=== PATIENT | female | born 1965 | race Caucasian/White ===

== ENCOUNTER 2017-04-29 18:20 | Emergency (ER) | payer BC ==
[2017-04-29] MEDS ORDERED: ASPIRIN (CHEWABLE) 81 MG TAB PO ONE (18:27)
--- NOTE | 2017-04-29 18:29 | ED.PDOC ---
History of Present Illness - General Source: patient, RN notes reviewed, Vital Signs reviewed Exam Limitations: no limitations - History of Present Illness Initial Comments: Patient comes to ER with c/o chest pain off and on since yesterday. Reports the pain started with a sharp pain in her R upper back along with some mild substernal chest pressure. No nausea, SOB or diaphoresis. No personal cardiac history. Both her parents have CAD and her mother who is a retired nurse told her she was having a heart attack. Timing/Duration: 24 hours, intermittent Severity/Quality: mild - 2/10, pressure - substernal, sharp - R upper back Location: substernal, back Chest Pain Radiation: no radiation Activities at Onset: none Prior Chest Pain/Cardiac Workup: no prior chest pain Improving Factors: nothing Worsening Factors: nothing Nitro Today/Relief: no nitro taken today Aspirin Treatment Today: 81 mg x 4, provided by ED Associated Symptoms: denies symptoms <Whitney Werner - Last Filed: 04/29/17 18:39> <Gallo Ashton - Last Filed: 04/29/17 21:56> - General Chief Complaint: Chest Pain/NM Stated Complaint: Chest pain Time Seen by Provider: 04/29/17 18:26 - History of Present Illness Allergies/Adverse Reactions: Allergies Penicillins Allergy (Verified 11/04/14 08:03) Home Medications: Ambulatory Orders Biotin 1,000 mcg PO DAILY 08/11/15 Levocetirizine Dihydrochloride [Levocetirizine Dihydrochl] 5 mg PO DAILY Lisinopril 5 mg PO DAILY 08/11/15 Lovastatin 20 mg PO DAILY 08/11/15 Metformin HCl 500 mg PO DAILY 08/11/15 Vitamin A 8,000 unit PO DAILY 08/11/15 Vitamin Mixture [Vitamin E Complete High G] 1,000 mg PO DAILY 08/11/15 HYDROcodone 5MG/APAP 325MG [[place] 5/325] 1 ea PO .Q4H #30 tab 08/15/15 Nystatin Powder 1 applic TOP QID #0 appli 08/15/15 Cyclobenzaprine HCl [Flexeril] 10 mg PO TID PRN #20 tab 04/29/17 Review of Systems - Review of Systems Constitutional: States: no symptoms reported Respiratory: States: no symptoms reported. Denies: short of breath Cardiology: States: see HPI, chest pain. Denies: palpitations, syncope Gastrointestinal/Abdominal: States: no symptoms reported Musculoskeletal: States: see HPI, back pain Skin: States: no symptoms reported Neurological: States: no symptoms reported All other Systems: No Change from Baseline <GiannaelWhitney Filed: 04/29/17 18:39> Past Medical History (General) - Patient Medical History Hx Seizures: No Hx Stroke: No Hx Asthma: Yes Hx of COPD: No Hx Cardiac Disorders: No Hx Congestive Heart Failure: No Hx Diabetes: Yes Hx MRSA: No - Female History Hx Last Menstrual Period: 01/08/14 <GiannaWhitney gallegos Last Filed: 04/29/17 18:39> Family Medical History - Family History Mother Family History: Unknown Age (years): 68 Living Status: Still Living Hx Family Hypertension: Yes Hx Cardiac Disease: Yes Hx Family Diabetes: Yes Father Age (years): 67 Living Status: Still Living Hx Family Hypertension: Yes Hx Family Stroke: Yes Hx Cardiac Disease: Yes Hx Family Diabetes: Yes Hx Family Cancer: Yes - stomach cancer <GiannaWhitney gallegos Filed: 04/29/17 18:39> Physical Exam - Physical Exam General Appearance: Alert, Comfortable, No apparent distress, Well Developed, Well Groomed, Well Hydrated, Well Nourished Neck: full range of motion, supple, normal inspection Respiratory: chest non-tender, lungs clear, normal breath sounds, no respiratory distress, no accessory muscle use Cardiovascular/Chest: normal peripheral pulses, regular rate, rhythm, no edema, no gallop, no JVD, no murmur Peripheral Pulses: radial,right: 2+, radial,left: 2+, dorsalis pedis,right: 2+, dorsalis pedis,left: 2+ Extremity: normal range of motion, normal inspection Neurologic: alert, normal mood/affect, oriented x 3 Skin Exam: normal color, warm/dry Comments: Back: R mid thoracic tenderness and muscle spasm. <GiannaelWhitney Filed: 04/29/17 18:39> Progress - EKG/XRAY/CT EKG: Sinus, no ST T wave changes Comments: Rate 84 bpm XRAY: chest - mild cardiomegally w/o CHF per Radiologist <Whitney Werner Filed: 04/29/17 18:39> - Progress Progress: 04/29/17 21:51 04/29/17 18:26 IV Care:Saline Lock per Protoc QSHIFT Telemetry Q4H 04/29/17 18:30 EKG STAT Laboratory Results WBC 9.9 K/mm3 (4.8-10.8) 04/29/17 18:25 RBC 4.73 M/mm3 (4.20-5.40) 04/29/17 18:25 Hgb 14.8 gm/dL (12.0-16.0) 04/29/17 18:25 Hct 43.2 % (36.0-47.0) 04/29/17 18:25 MCV 91.2 fl (81.0-99.0) 04/29/17 18:25 MCH 31.2 pg (27.0-31.0) H 04/29/17 18:25 MCHC 34.4 g/dL (33.0-37.0) 04/29/17 18:25 RDW 12.7 % (11.5-14.5) 04/29/17 18:25 Plt Count 311 K/mm3 (130-400) 04/29/17 18:25 MPV 8.5 fl (7.40-10.4) 04/29/17 18:25 Absolute Neuts (auto) 5.10 K/uL (1.8-6.8) 04/29/17 18:25 Absolute Lymphs (auto) 3.20 K/uL (1.0-3.4) 04/29/17 18:25 Absolute Monos (auto) 0.90 K/uL (0.2-0.8) H 04/29/17 18:25 Absolute Eos (auto) 0.50 K/uL (0.0-0.4) H 04/29/17 18:25 Absolute Basos (auto) 0.00 K/uL (0.0-0.1) 04/29/17 18:25 Neutrophils % 52.0 % (42.0-78.0) 04/29/17 18:25 Lymphocytes % 32.9 % (20.0-50.0) 04/29/17 18:25 Monocytes % 9.6 % (2.0-9.0) H 04/29/17 18:25 Eosinophils % 5.2 % (1.0-5.0) H 04/29/17 18:25 Basophils % 0.3 % (0.0-2.0) 04/29/17 18:25 D-Dimer, Quantitative < 230 ng/mL (0-230) 04/29/17 18:25 Sodium 136 mmol/L (135-145) 04/29/17 18:25 Potassium 3.4 mmol/L (3.6-5.0) L 04/29/17 18:25 Chloride 104 mmol/L (101-111) 04/29/17 18:25 Carbon Dioxide 24 mmol/L (21-31) 04/29/17 18:25 Anion Gap 11.4 (12-18) L 04/29/17 18:25 BUN 10 mg/dL (7-18) 04/29/17 18:25 Creatinine 0.60 mg/dL (0.6-1.3) 04/29/17 18:25 BUN/Creatinine Ratio 16.7 (10-20) 04/29/17 18:25 Random Glucose 101 mg/dL (70-105) 04/29/17 18:25 Serum Osmolality 271.1 mOsm/L (275-295) L 04/29/17 18:25 Calcium 9.4 mg/dL (8.4-10.2) 04/29/17 18:25 Total Bilirubin 0.6 mg/dL (0.2-1.0) 04/29/17 18:25 AST 58 IU/L (10-42) H 04/29/17 18:25 ALT 57 IU/L (10-60) 04/29/17 18:25 Alkaline Phosphatase 89 IU/L (42-121) 04/29/17 18:25 Creatine Kinase 79 IU/L (26-140) 04/29/17 21:25 CK-MB (CK-2) 1.2 ng/mL (0.0-4.4) 04/29/17 21:25 CK-MB (CK-2) % Not Reportable 04/29/17 21:25 Troponin I < 0.02 ng/mL (0.01-0.05) 04/29/17 21:25 Serum Total Protein 7.8 gm/dL (6.4-8.2) 04/29/17 18:25 Albumin 4.3 g/dl (3.2-5.5) 04/29/17 18:25 Globulin 3.5 gm/dL (2.3-3.5) 04/29/17 18:25 Albumin/Globulin Ratio 1.2 (1.1-1.9) 04/29/17 18:25 04/29/17 21:51 pt still chest pain, free; initial evaluation did find some chest wall pain, and trapezius area neck pain that reproduced symptoms; other exam was normal including cardiac/ pulmonary/ abd/ vascular exam. pt is low risk for acs and feel that given her current presentation and atypical quality of pain that is ulikely acs or pe. gave precautions to patient for safe return if symptoms become more concurrent with angina. <Gallo Ashton - Last Filed: 04/29/17 21:56> Departure <Whitney Werner - Last Filed: 04/29/17 18:39> - Departure Time of Disposition: 22:00 Diet: resume usual diet Activity: increase activity as tolerated <Gallo Ashton - Last Filed: 04/29/17 21:56> - Departure Clinical Impression: Chest wall injury, Muscle ache, Neck pain on left side Disposition: Discharge to Home or Self Care Condition: Excellent Departure Forms: ED Discharge - Pt. Copy, Patient Portal Self Enrollment Instructions: DI for Chest Pain Prescriptions: Cyclobenzaprine HCl [Flexeril] 10 mg PO TID PRN #20 tab PRN Reason: Pain Home Medications: Ambulatory Orders Biotin 1,000 mcg PO DAILY 08/11/15 Levocetirizine Dihydrochloride [Levocetirizine Dihydrochl] 5 mg PO DAILY Lisinopril 5 mg PO DAILY 08/11/15 Lovastatin 20 mg PO DAILY 08/11/15 Metformin HCl 500 mg PO DAILY 08/11/15 Vitamin A 8,000 unit PO DAILY 08/11/15 Vitamin Mixture [Vitamin E Complete High G] 1,000 mg PO DAILY 08/11/15 HYDROcodone 5MG/APAP 325MG [[place] 5/325] 1 ea PO .Q4H #30 tab 08/15/15 Nystatin Powder 1 applic TOP QID #0 appli 08/15/15 Cyclobenzaprine HCl [Flexeril] 10 mg PO TID PRN #20 tab 04/29/17
[2017-04-29] MEDS ORDERED: NITROGLYCERIN 0.4 MG 25 EA TAB SL ONE (18:31)
--- NOTE | 2017-04-29 18:38 | RAD ---
EXAM DESCRIPTION: Chest,1 View CLINICAL HISTORY: 52 years Female, chest pain COMPARISON: September 27, 2014 TECHNIQUE: AP portable chest. FINDINGS: Mild cardiomegaly with upper normal vascularity is evident and slightly more prominent than remotely seen in aorta is mildly tortuous. The lung blank are clear. No cardiac decompensation is noted. No additional abnormalities are seen. IMPRESSION: Borderline or mild cardiomegaly without congestive failure. Electronically signed by: Abram Lindsey MD 04/29/2017 6:37 PM STACKER OPERATOR
[2017-04-29 18:40] VITALS: TEMP 99; O2SAT 97
[2017-04-29] MEDS ORDERED: CYCLOBENZAPRINE TAB (ER DISP) 10 MG TAB PO ONE (20:20)
[2017-04-29] MEDS ORDERED: KETOROLAC TROMETHAMINE INJ 30 MG/ML VIAL IV ONE (21:16)
[2017-04-29 21:58] VITALS: BP 124/72
== END 2017-04-29 22:05 | disposition home or self-care (01) ==
LOC: ER 18:20
DX: M54.2 Cervicalgia (principal); S29.9XXA Unspecified injury of thorax, initial encounter; Z88.0 Allergy status to penicillin; Z79.899 Other long term (current) drug therapy; X58.XXXA Exposure to other specified factors, initial encounter; Y92.9 Unspecified place or not applicable
CPT/HCPCS: 36415; 71010; 80053; 82550; 82553; 84484; 85025; 85379; 93005; J1885

== ENCOUNTER → 2017-08-20 | Outpatient (CLI) | payer BC ==
--- NOTE | 2017-08-21 13:32 | MAM ---
EXAM DESCRIPTION: 3D Screening BILATERAL : Digital Mammography. CLINICAL HISTORY: 52 years Female ANNUAL SCREENING . No complaints. COMPARISON: 2-D digital screening bilateral study 03/07/2009. No prior reports available. TECHNIQUE: Bilateral CC and MLO projection full-field images, 3-D tomosynthesis digital mammographic technique. Also bilateral synthesized CC/ MLO full-field images. CAD not utilized. FINDINGS: The breast parenchymal density pattern is: Scattered areas of fibroglandular density. No skin thickening or nipple retraction bilateral axillary lymph nodes. Bilateral solitary microcalcifications and coarse calcifications. No focal, stellate mass or density, focal asymmetry , and no suspicious microcalcifications bilaterally. More fatty replaced and less density, compared to prior study, taking into account differences in mammographic technique IMPRESSION: BI-RADS CATEGORY: 2 - BENIGN FINDINGS. FOLLOW UP: Routine digital bilateral screening, one year interval from August 2017. Written communication explaining the IMPRESSION and follow-up, will be mailed to the patient and referring health care provider. According to the [employer], yearly mammograms are recommended starting at age 40 and continuing as long as a woman is in good health. Any breast change noted on a breast self-exam should be reported promptly to the patient's healthcare provider. Breast MRI is recommended for women with an approximately 20-25% or greater lifetime risk of breast cancer, including women with a strong family history of breast or ovarian cancer and women who have been treated for Hodgkin's disease. A negative mammographic report should not delay tissue diagnosis in patients with significant clinical history or physical findings. Extremely dense breast tissue limits the sensitivity of digital mammography. Electronically signed by: Aron Peraza MD 08/21/2017 1:32 PM CDT
== END ==
LOC: MAMMO 11:01
PROVIDERS: ATTEND Nurse Practitioner Family
DX: Z12.31 Encounter for screening mammogram for malignant neoplasm of breast (principal)

== ENCOUNTER → 2020-01-12 | Outpatient (CLI) | payer BC ==
--- NOTE | 2020-01-14 10:47 | US ---
EXAM DESCRIPTION: Pelvis Transvaginal: Ultrasound. CLINICAL HISTORY: 54 years Female CYST OF RIGHT OVARY COMPARISON: Screening digital mammography on the same visit. TECHNIQUE: Endovaginal scanning; Regan-scale and Doppler modes. FINDINGS: Uterus 8.0 x 4.8 x 3.3 cm 66.5 mL.. Endometrial thickness 3.2 mm. Myometrium homogeneous. Uterus not retroflexed. Cervix 3.8 mm cyst.. Cul-de-sac no fluid. Right ovary 2.4 x 2.2 x 2.0 cm 4.9 mL.. Decreased color Doppler vascularity. Complex hypoechoic heterogeneous cyst, 2.2 cm greatest diameter, occupying most of the ovary. Small echogenic nodule minimally vascular measuring 5.4 x 4.4 mm. No adnexal mass or free fluid. Left ovary 2.7 x 2.2 x 1.9 cm 5.8 mL.. Normal color Doppler vascularity. 2.0 x 1.5 x 1.5 cm simple cyst. Nonvascular. No adnexal mass or free fluid. IMPRESSION: 1. Complex 2.2 cm cyst with small vascular nodule in the right ovary. [facility] Best Practice guidelines: Multiple ovarian cysts found with different severities: 2.2 cm indeterminate ovarian cyst, 2.0 cm simple ovarian cyst, Subcentimeter indeterminate ovarian cyst. Consider the following unique recommendation(s) for the most severe cyst(s): For 2.2 cm indeterminate ovarian cyst, If patient is pre-menopausal, recommend pelvic US follow-up in 6-12 weeks; if unchanged, continue follow-up with pelvic US OR MRI w/IV contrast - if follow-up studies do not confirm endometrioma or dermoid, consider surgical evaluation. If patient is post-menopausal, recommend MRI without/with IV Gadolinium or surgical evaluation. Reference: Radiology 2010 Feb;256(3):943-54. 2. 2 cm simple cyst in the left ovary. No imaging follow-up recommended. 3. Normal size and position of uterus with no endometrial thickening or fluid. Small nabothian cyst. CRITICAL COMMUNICATION: The critical value was communicated directly by Dr. Peraza via phone call, with JEANCARLOS Wells, at approximately 1040 hours, on January 14, 2020. Electronically signed by: Aron Peraza MD 01/14/2020 10:45 AM CDT
--- NOTE | 2020-01-15 17:41 | MAM ---
EXAM DESCRIPTION: 3D Screening BILATERAL : Digital Mammography. CLINICAL HISTORY: 54 years Female SCREENING . No complaints. Mother with breast cancer at age 42. Female sibling with breast cancer at age 58. Remote family history of ovarian cancer. Menarche age 14. Childbirth age 39. Menopause age 50. No HRT. Lifetime risk of developing breast cancer (Tyrer-Cuzick model)(%): 12.1. COMPARISON: Bilateral screening digital breast tomosynthesis August 2017. TECHNIQUE: Bilateral CC and MLO projection full-field images, digital tomosynthesis mammographic technique. Bilateral digital 2-D full-field MLO images. CAD available for 2-D images. FINDINGS: The breast parenchymal density pattern is: Scattered areas of fibroglandular density. No skin thickening or nipple retraction. Axillary nodes. Solitary microcalcifications. Stable grouped vascular calcifications in the middle third posterior lateral left breast. No new focal, stellate mass or density, focal asymmetry , and no suspicious microcalcifications bilaterally. Stable mammograms compared to prior study. IMPRESSION: Benign exam. BIRAD CATEGORY: 2 BENIGN FINDINGS. RECOMMENDATIONS: FOLLOW UP: Routine digital bilateral mammographic screening, one year interval from January 2020. Written communication explaining the IMPRESSION and follow-up, will be mailed to the patient and referring health care provider. According to the [employer], yearly mammograms are recommended starting at age 40 and continuing as long as a woman is in good health. Any breast change noted on a breast self-exam should be reported promptly to the patient's healthcare provider. Breast MRI is recommended for women with an approximately 20-25% or greater lifetime risk of breast cancer, including women with a strong family history of breast or ovarian cancer and women who have been treated for Hodgkin's disease. A negative mammographic report should not delay tissue diagnosis in patients with significant clinical history or physical findings. Extremely dense breast tissue limits the sensitivity of digital mammography. Electronically signed by: Aron Peraza MD 01/15/2020 5:39 PM CDT
== END ==
LOC: US 09:58
PROVIDERS: ATTEND Nurse Practitioner Family
DX: Z12.31 Encounter for screening mammogram for malignant neoplasm of breast (principal); N83.201 Unspecified ovarian cyst, right side; N83.202 Unspecified ovarian cyst, left side; N88.8 Other specified noninflammatory disorders of cervix uteri